=== PATIENT | female | born 1990 ===

== ENCOUNTER 2017-06-23 13:00 | Emergency (ER) | payer BC ==
[2017-06-23 15:03] LABS: Hematocrit 39 % (35-47); Hemoglobin 13.2 g/dl (12.0-16.0); Mean Corpuscular HGB Conc 34 g/dl (31-36); Mean Corpuscular Hemoglobin 30 pg (27-31); Mean Corpuscular Volume 87 fL (80-97); Mean Platelet Volume 7 um3 (7.4-10.4); Red Blood Count 4.42 10^6/ul (4.0-5.4); Red Cell Distribution Width 13 % (10.5-15); White Blood Count 10.8 10^3/ul (3.5-10.8)
--- NOTE | 2017-06-23 15:30 | RAD ---
INDICATION: IUD placement, vaginal bleeding. COMPARISON: Comparison is made with a prior pelvic ultrasound from February 15, 2006. TECHNIQUE: Multiple real-time transvaginal images of the pelvis were obtained. FINDINGS: The uterus is normal in size, shape and echogenicity. The uterus measured 7.7 x 3.2 x 4.5 cm. The endometrial echo measured 1.0 cm in thickness. There is an IUD present which appears to have a T-shaped. On the left side the limb appears to be in normal position. On the right side the T limb appears to be pointing inferiorly. There is also fluid within the fundal portion of the endometrial cavity on the right side. The right ovary measured 3.7 x 2.5 x 3.1 cm. The left ovary measured 2.4 x 2.1 x 1.2 cm. There appears to be an involuting right follicular cyst measuring 2.0 x 1.2 x 1.9 cm. No free intraperitoneal fluid is seen. IMPRESSION: 1. THERE IS AN IUD PRESENT. WHICH DOES NOT APPEAR TO BE IN TYPICAL POSITION. THE T LIMB ON THE RIGHT SIDE APPEARS TO POINT CAUDALLY. THERE IS FLUID PRESENT WITHIN THE ENDOMETRIAL CAVITY IN THE FUNDAL PORTION OF THE UTERUS IN THIS REGION. 2. INVOLUTING RIGHT FOLLICULAR CYST MEASURING UP TO 2 CM IN SIZE.
[2017-06-23 16:39] VITALS: BP 128/75
[2017-06-23 17:27] LABS: Urine Bilirubin Negative (Negative); Urine Glucose Negative (Negative); Urine Nitrite Negative (Negative)
--- NOTE | 2017-06-23 17:46 | ED ---
Mita Shannon Edward, scribed for Carlo Richards MD on 06/23/17 at 1359 . Abdominal Pain/Female - HPI Summary HPI Summary: 26 y/o female presents to the ED c/o lower ABD pain described as cramping for the past week and a half. The pain is severe, rated 8/10 at triage located in the middle of the ABD. Pt also feels bloated. Pt has had vaginal bleeding for a few days. Pt had an IUD placed a week and a half ago at Dr. Garcia. Pt states an Ultrasound shows "one of the sides of the IUD is down". Pt took Ibuprofen at around 12:00 today, and had been taking it BID for the past five days for the pain. Associated sx: nausea. Denies fever/chills, urinary symptoms. - History of Current Complaint Chief Complaint: EDAbdPain Stated Complaint: ABD PAIN Time Seen by Provider: 06/23/17 13:57 Hx Obtained From: Patient Hx Last Menstrual Period: 1 WEEK AGO Onset/Duration: Lasting Weeks, Still Present Severity Currently: Severe Pain Intensity: 8 Pain Scale Used: 0-10 Numeric Location: Other - Lower mid ABD Character: Cramping Associated Signs and Symptoms: Positive: Vaginal Bleeding, Nausea, Other: - Bloating. Negative: Fever, Urinary Symptoms Allergies/Adverse Reactions: Allergies Allergy/AdvReac Type Severity Reaction Status Date / Time No Known Allergies Allergy Verified 12/31/14 09:31 PMH/Surg Hx/FS Hx/Imm Hx Previously Healthy: No Neurological History: Reports: Hx Migraine Infectious Disease History: No Infectious Disease History: Denies: Traveled Outside the [place] in Last 30 Days - Family History Known Family History: Negative: Other - No history of CVA, seizures - Social History Alcohol Use: Rare Hx Substance Use: No Substance Use Type: Reports: None Hx Tobacco Use: No Smoking Status (MU): Never Smoked Tobacco Review of Systems Constitutional: Negative Eyes: Negative ENT: Negative Cardiovascular: Negative Respiratory: Negative Positive: Abdominal Pain, Nausea, Other - Bloating Positive: other - Vaginal bleeding Musculoskeletal: Negative Skin: Negative Neurological: Negative Psychological: Normal All Other Systems Reviewed And Are Negative: Yes Physical Exam - Summary Physical Exam Summary: The patient is well-nourished in no acute distress and in no acute pain. The skin is warm and dry and skin color reflects adequate perfusion. HEENT: The head is normocephalic and atraumatic. The pupils are equal and reactive. The conjunctivae are clear and without drainage. Nares are patent and without drainage. Mouth reveals moist mucous membranes and the throat is without erythema and exudate. The external ears are intact. The ear canals are patent and without drainage. The tympanic membranes are intact. Neck is supple with full range of motion and non-tender. There are no carotid bruits. There is no neck vein distension. Respiratory: Chest is non-tender. Lungs are clear to auscultation and breath sounds are symmetrical and equal. Cardiovascular: Hear is regular rate and rhythm. There is no murmur or rub auscultated. There is no peripheral edema and pulses are symmetrical and equal. Abdomen: The abdomen is soft with tenderness over the uterus to palpation. There are normal bowel sounds heard in all four quadrants and there is no organomegaly palpated. There is no CVA tenderness Musculoskeletal: There is no back pain noted. Extremities are non-tender with full range of motion. There is good capillary refill. There is no peripheral edema or calf tenderness elicited. Patient has full motor strength. Neurological: Patient is alert and oriented to person, place and time. The patient has symmetrical motor strength in all four extremities. Cranial nerves are grossly intact. Deep tendon reflexes are symmetrical and equal in all four extremities. Psychiatric: The patient is mildly anxious. Triage Information Reviewed: Yes Vital Signs On Initial Exam: Initial Vitals Temp Pulse Resp BP Pulse Ox 99.8 F 71 20 146/77 98 06/23/17 13:08 06/23/17 13:08 06/23/17 13:08 06/23/17 13:08 06/23/17 13:08 Vital Signs Reviewed: Yes Procedures - Procedure Summary Procedure Summary: Pt in Lithotomy position. Vulva - w/o lesions. Vaginal canal - curdy white discharge. 2 opaque strings visualized from os of cervix. No bleeding. Using ringed hemostats, gentle constant pulling pressure until copper IUD removed in 1 piece. No bleeding. No cervical motion tenderness. Pt tolerated well. Diagnostics - Vital Signs Vital Signs Temp Pulse Resp BP Pulse Ox 06/23/17 13:55 99.5 F 71 20 146/77 100 06/23/17 13:08 99.8 F 71 20 146/77 98 - Laboratory Lab Results: Lab Results 06/23/17 06/23/17 06/23/17 Range/Units 14:40 14:40 17:15 WBC 10.8 (3.5-10.8) 10^3/ul RBC 4.42 (4.0-5.4) 10^6/ul Hgb 13.2 (12.0-16.0) g/dl Hct 39 (35-47) % MCV 87 (80-97) fL MCH 30 (27-31) pg MCHC 34 (31-36) g/dl RDW 13 (10.5-15) % Plt Count 304 (150-450) 10^3/ul MPV 7 L (7.4-10.4) um3 Neut % (Auto) 68.6 (38-83) % Lymph % (Auto) 23.8 L (25-47) % [place] % (Auto) 6.0 (1-9) % Eos % (Auto) 1.3 (0-6) % Baso % (Auto) 0.3 (0-2) % Absolute Neuts (auto) 7.4 (1.5-7.7) 10^3/ul Absolute Lymphs (auto) 2.6 (1.0-4.8) 10^3/ul Absolute Monos (auto) 0.6 (0-0.8) 10^3/ul Absolute Eos (auto) 0.1 (0-0.6) 10^3/ul Absolute Basos (auto) 0 (0-0.2) 10^3/ul Absolute Nucleated RBC 0 10^3/ul Nucleated RBC % 0 Beta HCG, Quant < 0.60 mIU/mL Urine Color Straw Urine Appearance Clear Urine pH 8.0 (5-9) Ur Specific [place] 1.010 (1.010-1.030) Urine Protein Negative (Negative) Urine Ketones Negative (Negative) Urine Blood Negative (Negative) Urine Nitrate Negative (Negative) Urine Bilirubin Negative (Negative) Urine Urobilinogen Negative (Negative) Ur Leukocyte Esterase Negative (Negative) Urine Glucose Negative (Negative) Result Diagrams: 06/23/17 14:40 Lab Statement: Any lab studies that have been ordered have been reviewed, and results considered in the medical decision making process. - Ultrasound No standard instances Ultrasound Interpretation: Positive (See Comments) - TRANSVAGINAL US - 1. THERE IS AN IUD PRESENT. WHICH DOES NOT APPEAR TO BE IN TYPICAL POSITION. THE T LIMB ON THE RIGHT SIDE APPEARS TO POINT CAUDALLY. THERE IS FLUID PRESENT WITHIN THE ENDOMETRIAL CAVITY IN THE FUNDAL PORTION OF THE UTERUS IN THIS REGION. 2. INVOLUTING RIGHT FOLLICULAR CYST MEASURING UP TO 2 CM IN SIZE. ED PHYSICIAN AGREEABLE Ultrasound Interpretation Completed By: Radiologist Re-Evaluation - Re-Evaluation 1 Re-Evaluation Time: 15:57 Change: Unchanged Comment: Discussed US results 2 Re-Evaluation Time: 16:26 3 Re-Evaluation Time: 17:34 Change: Unchanged - Pt still has ABD pain. Pt will be d/c home Abdominal Pain Fem Course/Dx - Course Course Of Treatment: 26 y/o female presents to the ED c/o lower ABD pain described as cramping for the past week and a half. The pain is severe, rated 8/ 10 at triage located in the middle of the ABD. Pt also feels bloated. Pt has had vaginal bleeding for a few days. Pt had an IUD placed a week and a half ago at Dr. Garcia. Pt states an Ultrasound shows "one of the sides of the IUD is down". Pt took Ibuprofen at around 12:00 today, and had been taking it BID for the past five days for the pain. Associated sx: nausea. Denies fever/chills, urinary symptoms. TRANSVAGINAL US - 1. THERE IS AN IUD PRESENT. WHICH DOES NOT APPEAR TO BE IN TYPICAL POSITION. THE T LIMB ON THE RIGHT SIDE APPEARS TO POINT CAUDALLY. THERE IS FLUID PRESENT WITHIN THE ENDOMETRIAL CAVITY IN THE FUNDAL PORTION OF THE UTERUS IN THIS REGION. 2. INVOLUTING RIGHT FOLLICULAR CYST MEASURING UP TO 2 CM IN SIZE. Discussed case with Dr. Espinoza. Pt's IUD was removed by MIRYAM Costello (see procedure note). Pt will be d/c home with f/u with Dr. Garcia. - Diagnoses Differential Diagnosis: Positive: Ovarian Cyst, , Urinary Tract Infection, Other - IUD malpositioned Provider Diagnoses: Pelvic pain, IUD removal, Right ovarian cyst - Provider Notifications Discussed Care Of Patient With: Tao Espinoza Time Discussed With Above Provider: 16:09 Discharge - Discharge Plan Condition: Stable Disposition: HOME Prescriptions: Ibuprofen TAB* [Motrin TAB* 800 MG] 800 mg PO TID #30 tab Patient Education Materials: Pelvic Pain in Women (ED), Ovarian Cyst (ED) Referrals: Madi Garcia MD [Medical Doctor] - 3 Days (Please f/u in 2-3 days) Additional Instructions: IF YOU ENGAGE IN INTERCOURSE, USE BARRIER CONTRACEPTIVES The documentation as recorded by the Mita henderson Edward accurately reflects the service I personally performed and the decisions made by me, Carlo Richards MD.
== END 2017-06-23 17:43 | disposition home or self-care (01) ==
LOC: ED 13:00
DX: N83.201 Unspecified ovarian cyst, right side (principal); N93.9 Abnormal uterine and vaginal bleeding, unspecified; R11.0 Nausea; R10.2 Pelvic and perineal pain
CPT/HCPCS: 36415; 76830; 81003; 84702; 85025; 99282